=== PATIENT | male | born 1940 | race Native Hawaiian/Other Pacific Islander ===

== ENCOUNTER 2017-09-30 18:31 | Emergency (ER) | payer OTHER ==
[~2017-09-30] VITALS: Ht 180.3 cm; Wt 65.8 kg
[2017-09-30] MEDS ORDERED: NITR0.4S2 SL (19:19)
[2017-09-30] MEDS ORDERED: ASPIR-8181 MG PO (19:20)
[2017-09-30] MEDS ORDERED: WARF2TAB7 PO (19:21)
[2017-09-30] MEDS ORDERED: WARF3TAB12 PO (19:21)
[2017-09-30 19:32] LABS: PLATELET COUNT 181 K/uL (142-355)
[2017-09-30 19:37] LABS: POTASSIUM 3.8 mmol/L (3.6-5.2)
[2017-09-30 21:00] VITALS: TEMP 98
[2017-09-30 22:30] VITALS: BP 118/78
== END 2017-09-30 22:57 | disposition short-term general hospital (02) ==
LOC: ED 18:31
DX: I21.4 Non-ST elevation (NSTEMI) myocardial infarction (principal); I48.91 Unspecified atrial fibrillation; I44.4 Left anterior fascicular block
CPT/HCPCS: 80053; 82550; 82553; 84484; 85027; 93005; 99285

== ENCOUNTER → 2017-09-30 | Outpatient (CLI) | payer OTHER ==
[~2017-09-30] MED LIST: ASPIR-8181 MG PO; NITR0.4S2 SL; WARF2TAB7 PO; WARF3TAB12 PO
== END | disposition short-term general hospital (02) ==
LOC: AMB 18:07
DX: R07.89 Other chest pain (principal); R53.1 Weakness; I49.8 Other specified cardiac arrhythmias
CPT/HCPCS: A0425; A0427